=== PATIENT | male | born 1950 | race Caucasian/White ===

== ENCOUNTER → 2017-01-23 | Day surgery (SDC) | payer OTHER ==
[~2017-01-23] VITALS: Ht 177.8 cm; Wt 96.2 kg
[~2017-01-23] MED LIST: AMIODARONE HCL200 M1 PO; ASPIRIN EC81 M1 PO; LIPITOR20 M2 PO; NORVASC5 M1 PO
--- NOTE | 2017-01-23 14:27 | Operative Report ---
Operative/Inv Procedure Report Surgery Date: 01/23/17 Name of Procedure: Cystocopy, removal of bladder stone, R ureteroscopy and exchange of R double J ureteral stent Pre-Operative Diagnosis: R ureteral stone Post-Operative Diagnosis: bladder stone Estimated Blood Loss: shelley Surgeon/Bagging Salvager: Erin BOOTH,NASIM Anguiano Anesthesia: laryngeal mask airway Drains: 26 cm, 6 fr R double J ureteral stent with long suture Specimens: Bladder stone Complications: none Condition: stable Operative Indication: This patient previously presented with right flank pain. Noncontrast CT scan showed a complex cyst in the right kidney and a 3-4 mm right proximal ureteral stone with hydronephrosis. Patient underwent insertion of right double-J ureteral stent and did well. He had a follow-up CAT scan without and with contrast that showed the large cyst the upper pole of the right kidney was a simple cyst with a single septation. The stone was still present at the level of L3. The patient was therefore scheduled for right ureteroscopy and stone removal. Operative/Procedure Note Note: The patient was taken to the cystoscopy room and identified. He is placed in supine position on the operating table in a timeout was executed appropriately with the patient awake. Gen. anesthesia was induced via LMA. He was then placed in dorsolithotomy position and prepped and draped in usual fashion for cystoscopy. Surgical pause was executed appropriately. A fluoroscopy image was taken with a marker on the right side of the abdomen to confirm the 22 Dutch cystoscope sheath was placed into the bladder under direct vision using the 30 lens. Anterior urethra was normal. Prostatic urethra showed significant hypertrophy and there was definitely an enlarged middle lobe of the prostate. Upon entering the bladder the distal end of the right ureteral stent was seen. A 3-4 mm stone was seen in the bladder. There was some surrounding cystitis but otherwise the bladder was normal. The stone was removed using the flexible grasper. The distal end of the stent was grabbed with a grasper and brought out the external urethral meatus. A guidewire was placed through the stent up to the level of the kidney. A double-lumen dilating catheter was used to place a second guidewire. The catheter was then removed. Over the second wire was placed the flexible ureteroscope. The image was not optimal. However the right ureter was inspected from the level of the kidney down to the ureterovesical junction. No evidence of any ureteral stone was seen. Presumably the stone in the bladder was the ureteral stone which passed. However the guidewire appeared to take a several centimeter course submucosally. Therefore the ureteroscope was advanced up the level of the renal pelvis under direct vision so there was certain that it was in the true lumen. The guidewire was then removed and replaced through the ureteroscope to ensure that the wire was within the true lumen. Ureteroscope was then removed leaving the guidewire in place. Again ureter was inspected as ureteroscope was removed and no stones were seen. Again the image was of poor quality due to a problem ureteroscope and no available replacement scope of the same type. The cystoscope was then back loaded onto the guidewire. Under visual fluoroscopic control a 26 cm 6 Dutch right double- J stent was placed. Wire was removed leaving the stent in place. The cystoscope was removed after draining the bladder. A long suture was left attached the distal end of the stent exiting the urethra. Fluoroscopy confirmed the proximal and the stent coiled in the right kidney and the distal" in the bladder. Patient tolerated the procedure well and as completion was taken to recovery room in stable condition. Findings: 3-4 mm bladder stone Discharge Disposition: PACU
--- NOTE | 2017-01-23 17:57 | RADIOLOGY REPORT ---
EXAMINATION: XR KIDNEYS, URETER, BLADDER CLINICAL INDICATION: 66-year-old male requiring right ureteral stent replacement. COMPARISON: None TECHNIQUE: Fluoroscopic imaging of the abdomen was utilized by Dr. Hay within the operating room. 2 spot fluoroscopy images of the abdomen are saved in the electronic picture archive. FLUOROSCOPY TIME: 46.3 seconds. FINDINGS: Please refer to the operative report regarding the intraoperative findings and procedures performed. A right ureteral stent is shown to be an its expected position. IMPRESSION: Fluoroscopic imaging assistance was provided to the operating room.
== END ==
LOC: STS 05:33
DX: N21.0 Calculus in bladder (principal); N40.0 Benign prostatic hyperplasia without lower urinary tract symptoms; Z87.442 Personal history of urinary calculi; Q61.9 Cystic kidney disease, unspecified; I25.10 Atherosclerotic heart disease of native coronary artery without angina pectoris; I10 Essential (primary) hypertension; E78.5 Hyperlipidemia, unspecified
CPT/HCPCS: 36415; 74000; 82355; 93005; 93010; C2617; J0690; J0744; J1885; J2250